=== PATIENT | female | born 1995 | race Caucasian/White ===

== ENCOUNTER 2022-04-18 23:11 | Emergency (ER) | payer BC ==
[~2022-04-18] VITALS: Ht 157.5 cm; Wt 46.7 kg
[2022-04-18 23:27] VITALS: BP_SYST 111
[2022-04-18 23:57] LABS: BASOPHILS # (AUTO) 0.1 K/uL (0.0-0.2); BASOPHILS % (AUTO) 0.8 % (0.0-2.0); EOSINOPHILS % (AUTO) 0.6 % (0.0-4.0); HEMATOCRIT 39.7 % (36-48); HEMOGLOBIN 13.6 g/dL (12.0-16.0); LYMPHOCYTES # (AUTO) 1.1 K/uL (1.0-5.5); LYMPHOCYTES % (AUTO) 14.6 % (20.5-51.5); MEAN CORPUSCULAR HEMOGLOBIN 33 pg (27-31); MEAN CORPUSCULAR HGB CONC 34 % (32-36); MEAN CORPUSCULAR VOLUME 95 fL (79.0-98.0); MONOCYTES # (AUTO) 0.4 K/uL (0.0-1.0); MONOCYTES % (AUTO) 4.7 % (1.7-9.3); NEUTROPHILS # (AUTO) 6.2 K/uL (1.8-7.7); NEUTROPHILS % (AUTO) 79.3 % (40.0-70.0); PLATELET COUNT (AUTO) 217 K/uL (130-430); RED BLOOD CELL COUNT(AUTO) 4.17 MIL/uL (4.2-6.2); RED CELL DISTRIBUTION WIDTH 13.3 % (9.0-15.0); WHITE BLOOD COUNT (AUTO) 7.8 K/uL (4.8-10.8)
[2022-04-19 00:11] LABS: CALCIUM 8.3 mg/dL (8.4-11.0); CREATININE 0.91 mg/dL (0.55-1.30); POTASSIUM 4.3 mmol/L (3.5-5.1)
[2022-04-19 00:18] LABS: ALBUMIN 3.9 g/dL (3.4-4.8); TOTAL BILIRUBIN 0.9 mg/dL (0.0-1.0)
[2022-04-19] MEDS ORDERED: NACL 0.9% 1,000 ML IV ONE (05:30)
[2022-04-19] MEDS ORDERED: ONDANSETRON HCL 4 MG/2 ML VIAL IVP ONE ×2 (05:30)
[2022-04-19 05:40] VITALS: BP_SYST 116
[2022-04-19] MEDS ORDERED: MAG HYDROX/AL HYDROX/SIMETH 30 ML, LIDOCAINE VISCOUS 2% 15ML (PO) 15 ML, DICYCLOMINE HC... PO ONE ×3 (05:45)
[2022-04-19] MEDS ORDERED: MAG-AL HYDROX/SIMETH 30 ML UDC ONE (05:59)
[2022-04-19] MEDS ORDERED: LIDOCAINE VISCOUS 2%, 15 ML UDC ONE (05:59)
[2022-04-19] MEDS ORDERED: ONDA-8 TL (06:24)
[2022-04-19] MEDS ORDERED: PEPTAB PO (06:26)
[2022-04-19] MEDS ORDERED: DICYCLOMINE HCL 10 MG CAPSULE ONE (06:34)
== END 2022-04-19 07:00 | disposition home or self-care (01) ==
LOC: SED 23:11
DX: A08.4 Viral intestinal infection, unspecified (principal); E86.0 Dehydration; R55 Syncope and collapse; Z79.899 Other long term (current) drug therapy
CPT/HCPCS: 99284; 80053; 83690; 85025; 36415; 96374; 96361; 74018; J2001; J2405; J7030